=== PATIENT | male | born 1955 | race Caucasian/White ===

== ENCOUNTER 2023-08-16 12:37 | Emergency (ER) | payer MEDICARE ==
[2023-08-16 13:36] LABS: #Basophils 0.08 10x3/uL (0.0-0.2); #Eosinphils 0.19 10x3/uL (0.0-0.5); #Monocytes 0.47 10x3/uL (0.0-1.1); %Basophils 1.4 % (0.0-2.0); %Eosinophils 3.3 % (0.0-6.0); %Lymphocytes 23.4 % (18.0-47.0); %Monocytes 8.1 % (0.0-10.0); %Neutrophils 63.6 % (40.0-75.0); Hematocrit 29.2 % (38.8-50.0); Hemoglobin 9.8 g/dL (13.5-17.5); Mean Corpuscular HGB CONC 33.6 g/dL (32.0-36.0); Mean Corpuscular Hemoglobin 26.5 pg (27.0-33.0); Mean Corpuscular Volume 78.9 fL (81.2-95.1); Mean Platelet Volume 10.4 fL (7.4-10.4); Platelet Count 279 10x3/uL (150-450); RBC Distribution Width 13.8 % (11.5-14.5); White Blood Cell (WBC) Count 5.8 10x3/uL (3.5-10.5)
[2023-08-16 13:50] LABS: ALT (SGPT) 16 U/L (8-55); AST (SGOT) 22 U/L (5-34); Albumin 3.8 g/dL (3.4-4.8); Alkaline Phosphatase 65 U/L (40-110); Anion Gap 15 mmol/L (10-20); BUN (Urea Nitrogen) 27 mg/dL (8.4-25.7); Bilirubin, Total 0.2 mg/dL (0.2-1.2); Calc. Creatinine Clearance 0 mL/min (70-130); Calcium 9.1 mg/dL (7.8-10.44); Carbon Dioxide 16 mmol/L (23-31); Chloride 110 mmol/L (98-107); Estimated GFR 68; Globulin 3.4 g/dL (2.4-3.5); Glucose 97 mg/dL (80-115); Potassium 3.7 mmol/L (3.5-5.1); Protein, Total 7.2 g/dL (5.8-8.1); Sodium 137 mmol/L (136-145)
[2023-08-16 13:56] LABS: Troponin I 0.022 ng/mL (< 0.028)
== END 2023-08-16 15:04 | disposition home or self-care (01) ==
LOC: CSHERS 12:37
DX: D64.9 Anemia, unspecified (principal); I11.0 Hypertensive heart disease with heart failure; I50.9 Heart failure, unspecified; T46.4X5A Adverse effect of angiotensin-converting-enzyme inhibitors, initial encounter
CPT/HCPCS: 36415; 71045; 80053; 83880; 84484; 85025; 93005

== ENCOUNTER 2023-08-29 12:21 | Inpatient (IN) | payer MEDICARE ==
[2023-08-29 13:16] LABS: #Basophils 0.06 10x3/uL (0.0-0.2); #Eosinphils 0.19 10x3/uL (0.0-0.5); #Monocytes 0.32 10x3/uL (0.0-1.1); #Neutrophils 3.05 10x3/uL (1.5-8.4); %Basophils 1.3 % (0.0-2.0); %Eosinophils 4.1 % (0.0-6.0); %Lymphocytes 21.4 % (18.0-47.0); %Monocytes 6.9 % (0.0-10.0); %Neutrophils 66.1 % (40.0-75.0); Hemoglobin 8.8 g/dL (13.5-17.5); Mean Corpuscular HGB CONC 32.6 g/dL (32.0-36.0); Mean Corpuscular Hemoglobin 25.7 pg (27.0-33.0); Mean Corpuscular Volume 78.9 fL (81.2-95.1); Mean Platelet Volume 10.7 fL (7.4-10.4); Platelet Count 259 10x3/uL (150-450); RBC Distribution Width 13.8 % (11.5-14.5); Red Blood Cell (RBC) Count 3.42 10x6/uL (4.32-5.72); White Blood Cell (WBC) Count 4.6 10x3/uL (3.5-10.5)
[2023-08-29 13:31] LABS: ALT (SGPT) 19 U/L (8-55); AST (SGOT) 19 U/L (5-34); Albumin 3.6 g/dL (3.4-4.8); Alkaline Phosphatase 60 U/L (40-110); Anion Gap 13 mmol/L (10-20); BUN (Urea Nitrogen) 26 mg/dL (8.4-25.7); Bilirubin, Total 0.2 mg/dL (0.2-1.2); Calc. Creatinine Clearance 0 mL/min (70-130); Calcium 8.9 mg/dL (7.8-10.44); Carbon Dioxide 16 mmol/L (23-31); Chloride 112 mmol/L (98-107); Estimated GFR 82; Globulin 3.2 g/dL (2.4-3.5); Glucose 122 mg/dL (80-115); Lipase 22 U/L (8-78); Potassium 3.2 mmol/L (3.5-5.1); Protein, Total 6.8 g/dL (5.8-8.1); Sodium 138 mmol/L (136-145)
[2023-08-29 13:34] LABS: Troponin I 0.153 ng/mL (< 0.028)
[2023-08-29] MEDS ORDERED: Aspirin 325 MG TAB ONE (13:41)
[2023-08-29] MEDS ORDERED: Pantoprazole 40 MG VIAL ONE (14:04)
[2023-08-29] MEDS ORDERED: Nitroglycerin 0.4 MG TAB (25 Tab Bottle) SL PRN (14:43)
[2023-08-29] MEDS ORDERED: Heparin 25,000 units/D5W 500 ML ONE (14:48)
[2023-08-29] MEDS ORDERED: ALPRAZolam 0.5 MG TAB PO PRN (15:02)
[2023-08-29 15:26] LABS: Hematocrit 27.3 % (38.8-50.0); Hemoglobin 8.6 g/dL (13.5-17.5); Platelet Count 281 10x3/uL (150-450)
[2023-08-29 15:37] LABS: Troponin I 0.164 ng/mL (< 0.028)
[2023-08-29 17:06] VITALS: BMI 32.3
[2023-08-29] MEDS: Potassium Chloride 20 MEQ TAB PO SCH (17:40)
[2023-08-29] MEDS: Acetaminophen 325 MG TAB PO SCH (17:41)
[2023-08-29] MEDS: Lactated Ringer's 1,000 ML IV SCH (17:42)
[2023-08-29 18:49] LABS: Troponin I 0.153 ng/mL (< 0.028)
[2023-08-29] MEDS ORDERED: Ezetimibe 10 MG TAB PO SCH (21:00)
[2023-08-29] MEDS: Ferrous Sulfate 325 MG TAB PO SCH (21:26)
[2023-08-29] MEDS: Sodium Bicarbonate Tab 325 MG TAB PO SCH (21:26)
[2023-08-29] MEDS: Pantoprazole DR 40 MG TAB PO SCH (21:26)
[2023-08-30] MEDS: Heparin 10,000 UNITS/ 10 ML VIAL SLOW IVP SCH (01:07)
[2023-08-30 04:30] LABS: Anion Gap 13 mmol/L (10-20); BUN (Urea Nitrogen) 22 mg/dL (8.4-25.7); Calc. Creatinine Clearance 100 mL/min (70-130); Calcium 8.6 mg/dL (7.8-10.44); Carbon Dioxide 17 mmol/L (23-31); Cardiac Risk 4.1 (Less than 4.5); Chloride 114 mmol/L (98-107); Cholesterol 145 mg/dl (< 200 Desired); Estimated GFR 81; Glucose 99 mg/dL (80-115); HDL Cholesterol 35 mg/dL (>60 Neg Risk); LDL Cholesterol, Calculated 93 mg/dL; Potassium 4.3 mmol/L (3.5-5.1); Sodium 140 mmol/L (136-145); Triglycerides 83 mg/dL (Less than 150)
[2023-08-30 04:38] LABS: #Basophils 0.09 10x3/uL (0.0-0.2); #Eosinphils 0.25 10x3/uL (0.0-0.5); #Monocytes 0.22 10x3/uL (0.0-1.1); #Neutrophils 1.72 10x3/uL (1.5-8.4); %Basophils 2.6 % (0.0-2.0); %Eosinophils 7.2 % (0.0-6.0); %Lymphocytes 34.4 % (18.0-47.0); %Monocytes 6.3 % (0.0-10.0); %Neutrophils 49.2 % (40.0-75.0); Hematocrit 26.5 % (38.8-50.0); Hemoglobin 8.5 g/dL (13.5-17.5); Mean Corpuscular HGB CONC 32.1 g/dL (32.0-36.0); Mean Corpuscular Hemoglobin 25.4 pg (27.0-33.0); Mean Corpuscular Volume 79.1 fL (81.2-95.1); Mean Platelet Volume 11.3 fL (7.4-10.4); Platelet Count 218 10x3/uL (150-450); Red Blood Cell (RBC) Count 3.35 10x6/uL (4.32-5.72); White Blood Cell (WBC) Count 3.5 10x3/uL (3.5-10.5)
[2023-08-30] MEDS ORDERED: Aspirin Chewable 81 MG TAB PO SCH (09:00)
[2023-08-30] MEDS: Loratadine 10 MG TAB PO SCH (09:01)
[2023-08-30] MEDS: Lisinopril 5 MG TAB PO SCH (09:01)
[2023-08-30] MEDS: Ezetimibe 10 MG TAB PO SCH (09:02)
[2023-08-30] MEDS: Cholecalciferol 1,000 UNITS (25 MCG) TAB PO SCH (09:02)
[2023-08-30] MEDS: Escitalopram Oxalate 10 mg Tablet PO SCH (09:02)
[2023-08-30] MEDS: Isosorbide Mononitrate 30 MG ER.TAB PO SCH (09:02)
[2023-08-30] MEDS: Aspirin 81 mg Enteric Coated Tablet PO SCH (09:02)
[2023-08-30] MEDS ORDERED: Communication Order-Pharmacy FS SCH (14:00)
[2023-08-30] MEDS: Heparin 25,000 units/D5W 500 ML IVPB SCH (14:09)
[2023-08-31 03:36] LABS: #Basophils 0.11 10x3/uL (0.0-0.2); #Eosinphils 0.33 10x3/uL (0.0-0.5); #Monocytes 0.42 10x3/uL (0.0-1.1); #Neutrophils 2.79 10x3/uL (1.5-8.4); %Basophils 2.2 % (0.0-2.0); %Eosinophils 6.5 % (0.0-6.0); %Lymphocytes 27.2 % (18.0-47.0); %Monocytes 8.3 % (0.0-10.0); %Neutrophils 55.4 % (40.0-75.0); Hematocrit 28.2 % (38.8-50.0); Hemoglobin 9.1 g/dL (13.5-17.5); Mean Corpuscular HGB CONC 32.3 g/dL (32.0-36.0); Mean Corpuscular Hemoglobin 25.5 pg (27.0-33.0); Platelet Count 252 10x3/uL (150-450); RBC Distribution Width 13.9 % (11.5-14.5); Red Blood Cell (RBC) Count 3.57 10x6/uL (4.32-5.72)
[2023-08-31 03:44] LABS: Anion Gap 14 mmol/L (10-20); BUN (Urea Nitrogen) 16 mg/dL (8.4-25.7); Calc. Creatinine Clearance 108 mL/min (70-130); Calcium 8.7 mg/dL (7.8-10.44); Carbon Dioxide 18 mmol/L (23-31); Chloride 112 mmol/L (98-107); Estimated GFR 89; Glucose 116 mg/dL (80-115); Potassium 3.8 mmol/L (3.5-5.1); Sodium 140 mmol/L (136-145)
[2023-08-31 04:08] VITALS: TEMP 98.8
[2023-08-31] MEDS: Sodium Chloride 0.9% 1,000 ML IV SCH (06:11)
[2023-08-31] MEDS: Isosorbide Mononitrate 30 MG ER.TAB PO SCH (06:16)
[2023-08-31] MEDS: Aspirin 81 mg Enteric Coated Tablet PO SCH (06:17)
[2023-08-31] MEDS: Loratadine 10 MG TAB PO SCH (06:17)
[2023-08-31] MEDS: Ferrous Sulfate 325 MG TAB PO SCH (06:19)
[2023-08-31] MEDS: Ezetimibe 10 MG TAB PO SCH (06:20)
[2023-08-31] MEDS: Sodium Bicarbonate Tab 325 MG TAB PO SCH (06:20)
[2023-08-31] MEDS: Escitalopram Oxalate 10 mg Tablet PO SCH (06:20)
[2023-08-31] MEDS: Pantoprazole DR 40 MG TAB PO SCH (06:20)
[2023-08-31] MEDS: Cholecalciferol 1,000 UNITS (25 MCG) TAB PO SCH (06:21)
[2023-08-31] MEDS: Lisinopril 5 MG TAB PO SCH (07:02)
[2023-08-31] MEDS ORDERED: fentaNYL 50 mcg/mL 1 mL Vial ONE (07:18)
[2023-08-31] MEDS ORDERED: Heparin 10,000 UNITS/ 10 ML VIAL ONE (07:18)
[2023-08-31] MEDS ORDERED: Verapamil 5 MG/2 ML VIAL ONE (07:18)
[2023-08-31] MEDS ORDERED: Nitroglycerin 50 MG/250 ML BOT 0 ML ONE (07:18)
[2023-08-31] MEDS ORDERED: Midazolam HCl 2 mg/2 ml Vial ONE (07:19)
[2023-08-31] MEDS ORDERED: Bivalirudin 250 MG VIAL ONE (07:25)
[2023-08-31] MEDS ORDERED: Lidocaine 1% (PF) 30 ML VIAL ONE (07:46)
[2023-08-31] MEDS ORDERED: Nitroglycerin 0.4 MG TAB (25 Tab Bottle) SL PRN (09:10)
[2023-08-31] MEDS ORDERED: Acetaminophen/Codeine 30-300mg Tablet PO PRN ×2 (09:10)
[2023-08-31] MEDS ORDERED: Sodium Chloride 0.9% 1,000 ML IV SCH (09:15)
[2023-08-31] MEDS ORDERED: Acetaminophen 325 MG TAB PO PRN (09:20)
[2023-08-31] MEDS ORDERED: Iopamidol 300 61% 100 ML VIAL FS ONE (10:42)
[2023-08-31] MEDS ORDERED: Sodium Bicarbonate Tab 325 MG TAB PO SCH (15:00)
[2023-08-31 15:48] VITALS: BP 138/79
[2023-08-31] MEDS ORDERED: Pantoprazole DR 40 MG TAB PO SCH (21:00)
[2023-08-31] MEDS ORDERED: Ferrous Sulfate 325 MG TAB PO SCH (21:00)
[2023-09-01] MEDS ORDERED: Isosorbide Mononitrate 30 MG ER.TAB PO SCH (09:00)
[2023-09-01] MEDS ORDERED: Aspirin 81 mg Enteric Coated Tablet PO SCH (09:00)
[2023-09-01] MEDS ORDERED: Ezetimibe 10 MG TAB PO SCH (09:00)
[2023-09-01] MEDS ORDERED: Loratadine 10 MG TAB PO SCH (09:00)
[2023-09-01] MEDS ORDERED: Lisinopril 5 MG TAB PO SCH (09:00)
[2023-09-01] MEDS ORDERED: Cholecalciferol 1,000 UNITS (25 MCG) TAB PO SCH (09:00)
[2023-09-01] MEDS ORDERED: Escitalopram Oxalate 10 mg Tablet PO SCH (09:00)
== END 2023-08-31 14:21 | disposition home or self-care (01) | DRG 811 ==
LOC: CSHERS 12:21 → CSHTELE 16:05
PROVIDERS: ADMIT Hospitalist; ATTEND Hospitalist
PROC: 4A023N7 Measurement of Cardiac Sampling and Pressure, Left Heart, Percutaneous Approach (ICD-10-PCS; principal; 2023-08-31)
PROC: B2151ZZ Fluoroscopy of Left Heart using Low Osmolar Contrast (ICD-10-PCS; 2023-08-31)
PROC: B2111ZZ Fluoroscopy of Multiple Coronary Arteries using Low Osmolar Contrast (ICD-10-PCS; 2023-08-31)
DX: D64.9 Anemia, unspecified (principal); I21.4 Non-ST elevation (NSTEMI) myocardial infarction; E87.20 Acidosis, unspecified; I24.9 Acute ischemic heart disease, unspecified; I25.110 Atherosclerotic heart disease of native coronary artery with unstable angina pectoris; I71.20 Thoracic aortic aneurysm, without rupture, unspecified; G47.33 Obstructive sleep apnea (adult) (pediatric); I35.0 Nonrheumatic aortic (valve) stenosis; E87.8 Other disorders of electrolyte and fluid balance, not elsewhere classified; K44.9 Diaphragmatic hernia without obstruction or gangrene; I11.9 Hypertensive heart disease without heart failure; E78.5 Hyperlipidemia, unspecified; Z79.82 Long term (current) use of aspirin; Z95.818 Presence of other cardiac implants and grafts; Z79.899 Other long term (current) drug therapy; Z98.890 Other specified postprocedural states; Z96.643 Presence of artificial hip joint, bilateral
CPT/HCPCS: 36415; 71045; 80048; 80053; 80061; 83690; 83880; 84484; 85025; 85379; 85730; 93005; 93010; 93306; 93458; 96374; 96375; 99152; 99153; C1760; C1769; C1887; C1894; C9113; J0583; J1644; J2001; J2250; J3010; J7050; J7120; Q9967